=== PATIENT | male | born 1960 | race Caucasian/White ===

== ENCOUNTER 2020-02-03 09:05 | Inpatient (IN) | payer BC ==
[~2020-02-03] VITALS: Ht 170.2 cm; Wt 97.5 kg
[~2020-02-03 09:05] MED LIST: LEVAQUIN500 MG PO; PREDNISONE20 MG PO
[2020-02-03] MEDS ORDERED: KETOROLAC TROMETHAMINE 30 MG/ML VIAL IV STA (09:12)
[2020-02-03] MEDS ORDERED: ONDANSETRON HCL INJ 2MG/ML 2ML 2 MG/ML VIAL IV STA (09:12)
[2020-02-03] MEDS ORDERED: MORPHINE SULFATE INJ 4 MG/ML INJ 1ML IV STA (09:12)
[2020-02-03] MEDS ORDERED: SODIUM CHLORIDE 0.9% 1000ML 1,000 ML IV STA (09:12)
[2020-02-03 09:29] LABS: BASOPHILS % 0.2 % (0.0-1.0); EOSINOPHILS % 0.5 % (0.0-6.0); HEMATOCRIT 41.9 % (38.2-49.6); HEMOGLOBIN 13.9 g/dL (14.0-18.0); LYMPHOCYTES # (AUTO) 0.2 (1.0-3.2); LYMPHOCYTES % 2.3 % (18.0-39.1); MEAN CORPUSCULAR HEMOGLOBIN 29.1 pg (28-32); MEAN CORPUSCULAR HGB CONC 33.2 g/dL (31-35); MEAN CORPUSCULAR VOLUME 87.8 fL (81-99); MONOCYTES # (AUTO) 0.1 (0.2-0.8); MONOCYTES % 1.2 % (4.4-11.3); NEUTROPHILS # (AUTO) 6.3 (2.1-6.9); NEUTROPHILS % 95.3 % (38.7-80.0); PLATELET COUNT 202 x10e3/uL (140-360); RED BLOOD COUNT 4.77 x10e6/uL (4.3-5.7); RED CELL DISTRIBUTION WIDTH 13.5 % (11.7-14.4)
[2020-02-03 09:39] LABS: CLARITY,URINE CLEAR (CLEAR); COLOR,URINE YELLOW (YELLOW)
[2020-02-03 09:40] LABS: KETONES,URINE 2+ (NEGATIVE); LEUKOCYTE ESTERASE ,URINE NEGATIVE (NEGATIVE); NITRITE,URINE NEGATIVE (NEGATIVE); PROTEIN,URINE DIPSTICK 2+ (NEGATIVE)
[2020-02-03 09:41] LABS: BILIRUBIN,URINE SMALL (NEGATIVE); URINE UROBILINOGEN 0.2 mg/dL (0.2 - 1)
[2020-02-03] MEDS ORDERED: CEFTRIAXONE SOD 1 GM/NS 50 ML 50 ML IV ONE (09:45)
[2020-02-03 09:50] LABS: INR 0.99; PROTHROMBIN TIME 13.7 seconds (11.9-14.5)
[2020-02-03 09:51] LABS: PARTIAL THROMBOPLASTIN TIME 26.7 seconds (23.8-35.5)
[2020-02-03] MEDS ORDERED: MORPHINE SULFATE 2 MG/ML SYR 1ML IV PRN (10:00)
[2020-02-03] MEDS ORDERED: ONDANSETRON HCL INJ 2MG/ML 2ML 2 MG/ML VIAL IV PRN (10:00)
[2020-02-03] MEDS ORDERED: PROMETHAZINE HCL (IM) 25 MG/ML VIAL IV PRN (10:00)
[2020-02-03] MEDS ORDERED: PROMETHAZINE 12.5MG/ NACL 0.9% 50 ML IV PRN (10:00)
[2020-02-03 10:07] LABS: BACTERIA,URINE MANY /HPF; RBC,URINE 0-5 /HPF (0-5); WBC,URINE (MAN) 21-50 /HPF (0-5)
[2020-02-03 10:08] LABS: EPITHELIAL CELLS,URINE FEW /LPF; TRANSITIONAL EPI CELLS,URINE FEW
[2020-02-03 10:10] LABS: ALBUMIN 3.4 g/dL (3.5-5.0); ALBUMIN/GLOBULIN RATIO 0.7 (0.8-2.0); CREATININE, SERUM 1.67 mg/dL (0.72-1.25)
--- NOTE | 2020-02-03 10:29 | NUR ---
pt given urine strainer
[2020-02-03] MEDS: SODIUM CHLORIDE 0.9% 1000ML 1,000 ML IV SCH ×2 (11:45→21:50)
[2020-02-03 12:19] VITALS: BP 107/67
[2020-02-03] MEDS ORDERED: IBUPROFEN 400 MG TAB PO ONE (15:15)
[2020-02-03 15:47] VITALS: BP 107/67
[2020-02-03 16:20] VITALS: BP 121/68
[2020-02-03 20:48] VITALS: BP 118/73
[2020-02-03] MEDS ORDERED: IBUPROFEN 400 MG TAB PO PRN ×2 (21:00→21:15)
[2020-02-03 21:06] VITALS: BP 118/73
[2020-02-03] MEDS: MORPHINE SULFATE INJ 4 MG/ML INJ 1ML IV PRN (21:50)
[2020-02-03] MEDS: CEFTRIAXONE SOD 1 GM/NS 50 ML 50 ML IV SCH (21:50)
[2020-02-04] VITALS (8 sets, daily range): BP systolic 120–133; BP diastolic 71–85
[2020-02-04] MEDS: SODIUM CHLORIDE 0.9% 1000ML 1,000 ML IV SCH ×3 (04:58→17:46)
[2020-02-04] MEDS: MORPHINE SULFATE INJ 4 MG/ML INJ 1ML IV PRN (04:59)
[2020-02-04 06:59] LABS: BASOPHILS % 0.3 % (0.0-1.0); EOSINOPHILS % 0.5 % (0.0-6.0); HEMATOCRIT 36.3 % (38.2-49.6); HEMOGLOBIN 11.7 g/dL (14.0-18.0); LYMPHOCYTES # (AUTO) 0.2 (1.0-3.2); LYMPHOCYTES % 4.4 % (18.0-39.1); MEAN CORPUSCULAR HEMOGLOBIN 28.7 pg (28-32); MEAN CORPUSCULAR HGB CONC 32.2 g/dL (31-35); MONOCYTES # (AUTO) 0.2 (0.2-0.8); MONOCYTES % 6.2 % (4.4-11.3); NEUTROPHILS # (AUTO) 3.4 (2.1-6.9); NEUTROPHILS % 87.8 % (38.7-80.0); PLATELET COUNT 171 x10e3/uL (140-360); RED BLOOD COUNT 4.08 x10e6/uL (4.3-5.7); RED CELL DISTRIBUTION WIDTH 13.9 % (11.7-14.4)
[2020-02-04 07:23] LABS: ALBUMIN 2.6 g/dL (3.5-5.0); ALBUMIN/GLOBULIN RATIO 0.7 (0.8-2.0); ANION GAP 13.1 mmol/L (8-16); CALCIUM 8.5 mg/dL (8.4-10.2); CREATININE, SERUM 1.65 mg/dL (0.72-1.25); POTASSIUM 4.1 mmol/L (3.5-5.1)
[2020-02-04 07:56] LABS: BAND NEUTROPHILS % (MANUAL) 3 %; LYMPHOCYTES % (MANUAL) 4 % (19-48); MONOCYTES % (MANUAL) 4 % (3.4-9.0); NEUTROPHILS % (MANUAL) 88 % (40-74)
[2020-02-04 07:57] LABS: PLATELET ESTIMATE ADEQUATE; PLATELET MORPHOLOGY COMMENT NORMAL; RBC MORPHOLOGY COMMENT NORMAL
[2020-02-04] MEDS: CEFTRIAXONE SOD 1 GM/NS 50 ML 50 ML IV SCH ×2 (09:15→22:03)
--- NOTE | 2020-02-04 12:32 | Consultation ---
DATE OF CONSULTATION: 02/04/2020 Urology Consultation REASON FOR CONSULTATION: Renal colic. HISTORY OF PRESENT ILLNESS: Jorge Weston is a 59-year-old man who has never had any urological problems. He denies any hematuria, dysuria, urinary tract infections, and urolithiasis. He denies any issues except for some left testicular sensitivity ever since his vasectomy many years ago. The patient had severe left-sided flank pain with nausea and vomiting and reported to the emergency room and had a CT scan done as an outpatient revealed a 3 mm proximal left ureteral stone with left-sided hydronephrosis. unable to handle the patient as an outpatient and went to the emergency room and subsequently admitted for pain control and management. He denies any gross hematuria. The patient has required pain control during this hospitalization. Denies any urinary incontinence. Denies any obstructive symptoms. PAST MEDICAL AND SURGICAL HISTORY: None. ALLERGIES: NONE KNOWN. CURRENT MEDICATIONS: Normally none. SOCIAL HISTORY: The patient denies smoking, ethanol drug use. 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 FAMILY HISTORY: Significant for diabetes and heart disease. REVIEW OF SYSTEMS: Discussed as above in history of present illness, past medical history, otherwise negative for all systems. PHYSICAL EXAMINATION: GENERAL: Healthy-appearing 59-year-old man, lying in bed, in no apparent distress. VITAL SIGNS: He is currently afebrile. His vital signs are currently stable. ABDOMEN: Soft, obese, nondistended, slightly tender in the left flank with mild left-sided costovertebral angle tenderness. Kidneys are not palpable without hepatosplenomegaly. No obvious evidence of hernia. GENITOURINARY: Testes descended bilaterally. The right testis is normal. The left testis is slightly atrophic. There is some induration of the left epididymis and cord with some sensitivity. The right cord is less indurated. The patient has a normal circumcised male phallus with normal meatus without any lesion. Digital rectal examination deferred at the present time. For the remaining physical examination systems, please refer to the admission history and physical and chart and ERT sheet. LABORATORY STUDIES: The patient's sodium is low at 133. His creatinine is elevated 1.65. His urinalysis significant for 21 to 58 WBCs with many bacteria. The patient's white blood cell count is low at 3880, hemoglobin 11.7, platelets are normal 171 pounds. Urine cultures revealing preliminarily 10,000 to 50,000 colonies of Staph species. ASSESSMENT: 1. Left hydronephrosis. 2. Urinary tract infection. 3. Atrophic left testis. 4. Renal colic. 5. Nausea and vomiting. 6. Hyponatremia. 7. Presumably acute renal failure. 8. Obesity. 9. Leukopenia. 10. Anemia. 11. Obstructive left ureterolithiasis. PLAN: 1. I discussed with the patient the options of stone passage trial versus cystoscopy and stent placement. He would like to proceed as discussed stent placement for multiple reasons including the fact that he has urinary tract infection. He has acute renal failure as well as the fact that he has significant pains. 2. I posted the patient emergently for cystoscopy and stent placement. 3. I recommend keeping the patient as an inpatient until we have culture and sensitivity that are final, so that we may discharge him antibiotics potentially as early as tomorrow. 4. I recommend following up on the patient's renal function and rechecking it tomorrow, following stent placement today. I defer the hematological and electrolyte abnormalities to the admitting physician. Thank you much for involving us in care of your patient. We will be happy to follow along with you as well as an outpatient. Bro Orta MD [facility]/MODL /[id number] cc: Tuan Moncada MD
[2020-02-04] MEDS ORDERED: B&O 60MG R/S 60 MG SUPP PR ONE (12:36)
[2020-02-04] MEDS ORDERED: IOPAMIDOL 300MG/ML 50ML INFUS..BTL IV ONE (12:37)
[2020-02-04] MEDS ORDERED: MEPERIDINE HCL INJ 25 MG/ML VIAL ONE (14:10)
[2020-02-04] MEDS ORDERED: ACETAMINOPHEN 1000 MG/100 ML 100 ML IV ONE (14:21)
[2020-02-04] MEDS ORDERED: DEXAMETHASONE SOD PHOS INJ 4 MG/ML VIAL ONE (15:20)
[2020-02-04] MEDS ORDERED: LIDOCAINE HCL 2% LOCAL INJ 5 ML SDV VIAL INJ ONE (15:20)
[2020-02-04] MEDS ORDERED: PROPOFOL IV EMULSION 10 MG/ML 20 ML VIAL ONE (15:20)
[2020-02-04] MEDS ORDERED: DESFLURANE 240 ML BTL INH ONE (15:20)
[2020-02-04] MEDS ORDERED: ONDANSETRON HCL INJ 2MG/ML 2ML 2 MG/ML VIAL ONE (15:20)
[2020-02-04] MEDS ORDERED: MIDAZOLAM HCL 2 MG/2 ML VIAL ONE (15:54)
[2020-02-04] MEDS ORDERED: FENTANYL CITRATE/PF 100MCG/2 ML INJ ONE (15:54)
--- NOTE | 2020-02-04 19:11 | NUR ---
Report given to oncoming nurse. Resting in bed. Call light within reach, bed locked and in low position. 125 ml/hr NS via right AC peripheral IV. No signs of infiltration.
[2020-02-05 00:13] VITALS: BP 133/71
[2020-02-05 05:23] VITALS: BP 170/96
[2020-02-05] MEDS ORDERED: KETOROLAC TROMETHAMINE 30 MG/ML VIAL IV STA (05:23)
[2020-02-05 06:12] LABS: BASOPHILS % 0.2 % (0.0-1.0); HEMATOCRIT 31.8 % (38.2-49.6); HEMOGLOBIN 10.3 g/dL (14.0-18.0); LYMPHOCYTES # (AUTO) 0.3 (1.0-3.2); LYMPHOCYTES % 5.2 % (18.0-39.1); MEAN CORPUSCULAR HEMOGLOBIN 28.8 pg (28-32); MEAN CORPUSCULAR HGB CONC 32.4 g/dL (31-35); MEAN CORPUSCULAR VOLUME 88.8 fL (81-99); MONOCYTES # (AUTO) 0.4 (0.2-0.8); MONOCYTES % 7.7 % (4.4-11.3); NEUTROPHILS # (AUTO) 4.1 (2.1-6.9); NEUTROPHILS % 86.3 % (38.7-80.0); PLATELET COUNT 158 x10e3/uL (140-360); RED BLOOD COUNT 3.58 x10e6/uL (4.3-5.7); RED CELL DISTRIBUTION WIDTH 13.8 % (11.7-14.4)
[2020-02-05] MEDS: SODIUM CHLORIDE 0.9% 1000ML 1,000 ML IV SCH ×2 (06:23→10:30)
[2020-02-05 06:38] LABS: ANION GAP 10.4 mmol/L (8-16); CALCIUM 8.6 mg/dL (8.4-10.2); CREATININE, SERUM 1.33 mg/dL (0.72-1.25); POTASSIUM 4.4 mmol/L (3.5-5.1)
--- NOTE | 2020-02-05 07:00 | NUR ---
RECEIVED REPORT FROM DIGITIZER OPERATOR NURSE, PATIENT IS A&OX3, FLUIDS RUNNING TO RT AC IV20G, STRAINER IN RESTROOM, PT IS AWARE TO STRAIN ALL URINE. NO DISTRESS NOTED, BED IS LOW AND LOCKED, SIDE RAILS UPX2, CALL LIGHT WITHIN REACH.
[2020-02-05 07:36] LABS: BAND NEUTROPHILS % (MANUAL) 8 %; LYMPHOCYTES % (MANUAL) 4 % (19-48); MONOCYTES % (MANUAL) 5 % (3.4-9.0); NEUTROPHILS % (MANUAL) 83 % (40-74); PLATELET ESTIMATE ADEQUATE; PLATELET MORPHOLOGY COMMENT NORMAL; RBC MORPHOLOGY COMMENT NORMAL
[2020-02-05 08:24] VITALS: BP 162/97
[2020-02-05 09:00] VITALS: BP 162/97
[2020-02-05] MEDS: CEFTRIAXONE SOD 1 GM/NS 50 ML 50 ML IV SCH (10:30)
[2020-02-05 13:00] VITALS: BP 144/95
[2020-02-05] MEDS ORDERED: FLOMAX0.4 MG PO (13:50)
[2020-02-05] MEDS ORDERED: TYLENOL WITH C1 EACH PO (13:51)
[2020-02-05] MEDS ORDERED: BACTRIM DS TAB1 EACH PO (13:51)
[2020-02-05] MEDS ORDERED: AZO URINARY P97.5 MG PO (13:53)
--- NOTE | 2020-02-05 14:10 | NUR ---
EDUCATED PATIENT REGARDING DISCHARGE INSTRUCTIONS. PT TO FOLLOW UP WITH PCP IN 5-7 DAYS, AND UROLOGIST DR. Baldo OCONNOR IN 2 WEEKS, NEW MEDICATION PRESCRIPTIONS GIVEN TO PATIENT. PATIENT ADVISED TO STOP PHENTERMINE MEDICATION PER DR. Baldo OCONNOR. STRAIN ALL URINE, SAVE ANY STONES. PATIENT VERBALIZED INSTRUCTIONS. NO QUESTIONS. IV TO RIGHT AC D/C'D INTACT, 2X2 AND TAPE PLACED.
--- NOTE | 2020-02-05 14:16 | NUR ---
PATIENT WHEELED OUT VIA WHEELCHAIR BY STAFF, FOR D/C HOME VIA PRIVATE AUTO. NO DISTRESS NOTED, ALL BELONGINGS WITH PT.
--- NOTE | 2020-02-06 08:18 | Discharge Summary ---
DISCHARGE DIAGNOSES: 1. Left kidney stone, status post cystoscopy and stent placement. 2. Hypertension. HISTORY OF PRESENT ILLNESS AND HOSPITAL COURSE: The patient is a gentleman, who presented with flank pain. He was found as an outpatient to have a 3 mm proximal left ureteral stone with hydronephrosis, where he was tried to be treated as an outpatient, but unfortunately, the patient started having increasing nausea, vomiting, pain. Therefore, he has been admitted for further evaluation. He was seen by Dr. Orta, who took him to the OR and did a cystoscopy. Please see OR notes for further details. Postprocedure, the patient did very well. He had some complaints of some synovitis of his hands, which is not unusual for him and he did much better after a dose of Toradol. The patient was discharged to follow up with me in 1 week as well as Dr. Orta. Please see hospital chart for full details. MD YULI Gatica/SOPHIE /[id number]
--- NOTE | 2020-02-06 22:21 | Operative Report ---
DATE OF PROCEDURE: 02/04/2020 SURGEON: Bro Orta MD PREOPERATIVE DIAGNOSES: 1. Left hydronephrosis. 2. Urinary tract infection. POSTOPERATIVE DIAGNOSES: 1. Left hydronephrosis. 2. Left distal ureteral stricture. 3. Urinary tract infection. 4. Urethral stricture disease near the external urinary sphincter. 5. 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 OPERATIONS PERFORMED: 1. Cystourethroscopy with bilateral ureteral catheterization and retrograde ureteropyelography (separate procedure performed for the urinary tract infections). 2. Interpretation of retrograde ureteropyelography. 3. Left ureteroscopy with dilation of ureteral stricture (separate procedure performed for the diagnosis of the stricture). 4. Radiological services with supervision and interpretation of ureteroscopy. 5. Interpretation of retrograde ureteropyelography. 6. Supervision of fluoroscopy, no radiologist present. 7. Cystourethroscopy with transurethral resection of bladder tumor. 8. Cystourethroscopy with dilation of urethral stricture. ANESTHESIA: General. COMPLICATIONS: None. CLINICAL SUMMARY: Please refer to consultation dictation from the same date. OPERATIVE PROCEDURE IN DETAIL: Informed consent was verified. Jorge Weston was properly identified, taken to the operating room, placed on a cystoscopy table in supine position. Anesthesia was uneventfully begun. The patient was then carefully gently repositioned in the dorsal lithotomy position with all pressure points well padded. His genitalia were prepared and draped in the usual sterile fashion. The cystoscope sheath with the visual obturator in place was atraumatically inserted into the patient's urethra, was guided unremarkable distal urethra to the bulbar region where just outside the external urinary sphincter. There was a short and not very dense stricture, which we gently dilated across utilizing a 22.5-Armenian cystoscope sheath, thus calibrating it at 22.5-Armenian. We went through the prostate bed, which was significant for BPH with an elevated median bar and entered the patient's bladder. Panendoscopy revealed a tumor just lateral to the right ureteral orifice. There was some calcified glistening at the left ureteral orifice. The open-ended ureteral catheter was used to cannulate the right ureter and the retrograde ureteral pyelograms were performed. It was then attempted to be placed into the left ureter and retrograde ureteral pyelograms were performed. There was hydroureteronephrosis in the left hand side. We attempted to place a guidewire into the left distal ureter and this was unsuccessful. Therefore, we took the semi-rigid ureteroscope and brought it to the ureteral orifice and under direct vision, we were able to negotiate a guidewire through what appeared to be a distal ureteral stricture. We then followed the wire with the ureteroscope, thus gently dilating the distal ureter to the ureteroscope in size. We did not visualize any stone within the ureter. There was definitely dilation of the ureter itself. With cystoscopic fluoroscopic guidance, a left-sided indwelling ureteral stent was then placed. It was coiled in the patient's kidneys as well as the patient's bladder. The retaining suture was cut short. Cold cup biopsy forceps were then utilized to resect the bladder tumor. We then utilized the Bugbee electrode to fulgurate the base of the tumor as well as the surrounding region in order to ensure any negative margin. Excellent hemostasis was achieved. The patient's bladder was drained. Cystoscope was withdrawn. A belladonna and opium suppository was placed revealing a 30 g prostate, smooth, non-fluctuant, without any nodules. The patient was then uneventfully reversed from anesthesia and taken to recovery room in stable condition. Interpretation of retrograde ureteropyelography contrast was instilled in retrograde fashion bilaterally. The right side was unremarkable. There were no tumors, no stones, no diverticula. Unobstructed drainage was observed fluoroscopically. Left side exhibited hydroureteronephrosis. The stent was in good position, coiled in the patient's kidneys as well as the patient's bladder at the end of the case. PLANS: Will be to observe the patient overnight, await his final urine culture and sensitivity ensuring he is discharged on culture-specific antibiotics. We will then plan to follow him back up in the office and follow up in the office in a couple of weeks for a uroflowmetry and bladder sonography in order to evaluate his voiding. Meantime, we will plan on discharge the patient home on Flomax for his newly diagnosed BPH. Bro Orta MD [facility]/SOPHIE /[id number]
== END 2020-02-05 14:16 | disposition home or self-care (01) | DRG 660 ==
LOC: ER 09:05 → ERHOLD 09:46 → MED/SURG2 11:03
PROVIDERS: ADMIT Internal Medicine; ATTEND Internal Medicine
PROC: 0T768ZZ Dilation of Right Ureter, Via Natural or Artificial Opening Endoscopic (ICD-10-PCS; 2020-02-04)
PROC: BT141ZZ Fluoroscopy of Kidneys, Ureters and Bladder using Low Osmolar Contrast (ICD-10-PCS; 2020-02-04)
PROC: 0T7D8ZZ Dilation of Urethra, Via Natural or Artificial Opening Endoscopic (ICD-10-PCS; 2020-02-04)
PROC: 0TBB8ZX Excision of Bladder, Via Natural or Artificial Opening Endoscopic, Diagnostic (ICD-10-PCS; principal; 2020-02-04 12:00)
PROC: 0T778DZ Dilation of Left Ureter with Intraluminal Device, Via Natural or Artificial Opening Endoscopic (ICD-10-PCS; 2020-02-04 12:00)
DX: N13.6 Pyonephrosis (principal); E87.1 Hypo-osmolality and hyponatremia; N39.0 Urinary tract infection, site not specified; C67.9 Malignant neoplasm of bladder, unspecified; N17.9 Acute kidney failure, unspecified; I12.9 Hypertensive chronic kidney disease with stage 1 through stage 4 chronic kidney disease, or unspecified chronic kidney disease; N18.3 Chronic kidney disease, stage 3 (moderate); E66.9 Obesity, unspecified; Z68.33 Body mass index [BMI] 33.0-33.9, adult; N50.0 Atrophy of testis; D64.9 Anemia, unspecified; N23 Unspecified renal colic; N45.1 Epididymitis; N35.919 Unspecified urethral stricture, male, unspecified site
CPT/HCPCS: 36415; 74420; 80048; 80053; 81001; 83970; 84550; 85025; 85610; 85730; 87086; 87186; 88305; 96361; 99284; C2617; J0696; J1100; J1885; J2001; J2175; J2250; J2270; J2405; J3010; J7030

== ENCOUNTER 2020-02-28 16:04 | Inpatient (IN) | payer BC ==
[~2020-02-28] VITALS: Ht 170.2 cm; Wt 98.6 kg
[~2020-02-28 16:04] MED LIST changes: +AZO URINARY P97.5 MG PO; +BACTRIM DS TAB1 EACH PO; +FLOMAX0.4 MG PO; +TYLENOL WITH C1 EACH PO
[2020-02-28] MEDS ORDERED: ONDANSETRON HCL INJ 2MG/ML 2ML 2 MG/ML VIAL IV PRN (16:30)
[2020-02-28 16:43] LABS: BASOPHILS % 0.3 % (0.0-1.0); EOSINOPHILS # (AUTO) 0.2 (0.0-0.4); EOSINOPHILS % 2.6 % (0.0-6.0); HEMOGLOBIN 11.7 g/dL (14.0-18.0); LYMPHOCYTES % 15.2 % (18.0-39.1); MEAN CORPUSCULAR HGB CONC 32.5 g/dL (31-35); MEAN CORPUSCULAR VOLUME 89.1 fL (81-99); MONOCYTES # (AUTO) 0.6 (0.2-0.8); MONOCYTES % 8.9 % (4.4-11.3); NEUTROPHILS # (AUTO) 4.9 (2.1-6.9); NEUTROPHILS % 72.4 % (38.7-80.0); PLATELET COUNT 173 x10e3/uL (140-360); RED BLOOD COUNT 4.04 x10e6/uL (4.3-5.7); RED CELL DISTRIBUTION WIDTH 13.8 % (11.7-14.4)
[2020-02-28 16:50] LABS: INR 0.91; PARTIAL THROMBOPLASTIN TIME 25.1 seconds (23.8-35.5); PROTHROMBIN TIME 12.8 seconds (11.9-14.5)
[2020-02-28 16:57] LABS: ALBUMIN 3.4 g/dL (3.5-5.0); ALBUMIN/GLOBULIN RATIO 0.8 (0.8-2.0); ANION GAP 12.7 mmol/L (8-16); CALCIUM 9.2 mg/dL (8.4-10.2); CREATININE, SERUM 1.32 mg/dL (0.72-1.25); POTASSIUM 3.7 mmol/L (3.5-5.1)
[2020-02-28 17:50] VITALS: BP 179/97
--- NOTE | 2020-02-28 17:58 | NUR ---
AAOX3. ACYANOTIC. RESTING IN BED WATCHING TELEVISION. NO DISTRESS NOTED. SIDERAILS UP X2. BED LOW. CALL LIGHT IN REACH.
[2020-02-28] MEDS: SODIUM CHLORIDE 0.9% 1000ML 1,000 ML IV SCH (18:00)
[2020-02-28 18:10] VITALS: BP 179/97
[2020-02-28] MEDS: ENOXAPARIN SODIUM INJ 100 MG/ML SYR SC SCH (18:43)
--- NOTE | 2020-02-28 19:10 | NUR ---
Bedside report and walking rounds completed with off going nurse. Patient in bed with call light within reach. No issues or concerns noted. Will continue to monitor closely.
[2020-02-28 20:00] VITALS: BP 162/88
[2020-02-28 21:52] VITALS: BP 162/88
[2020-02-29] VITALS (7 sets, daily range): BP systolic 134–156; BP diastolic 67–82
[2020-02-29] MEDS: SODIUM CHLORIDE 0.9% 1000ML 1,000 ML IV SCH ×2 (04:47→12:14)
--- NOTE | 2020-02-29 05:10 | NUR ---
Dr Moncada on unit, home meds reviewed and continued per orders.
[2020-02-29] MEDS ORDERED: ACETAMINOPHEN/CODEINE 300MG - 30MG TAB PO PRN (05:15)
[2020-02-29] MEDS: ENOXAPARIN SODIUM INJ 100 MG/ML SYR SC SCH ×2 (05:35→16:45)
[2020-02-29 05:39] LABS: BASOPHILS % 0.6 % (0.0-1.0); EOSINOPHILS # (AUTO) 0.3 (0.0-0.4); EOSINOPHILS % 4.1 % (0.0-6.0); HEMOGLOBIN 10.9 g/dL (14.0-18.0); LYMPHOCYTES # (AUTO) 1.2 (1.0-3.2); LYMPHOCYTES % 19.1 % (18.0-39.1); MEAN CORPUSCULAR HEMOGLOBIN 28.8 pg (28-32); MEAN CORPUSCULAR HGB CONC 32.1 g/dL (31-35); MEAN CORPUSCULAR VOLUME 89.9 fL (81-99); MONOCYTES # (AUTO) 0.5 (0.2-0.8); MONOCYTES % 7.6 % (4.4-11.3); NEUTROPHILS # (AUTO) 4.3 (2.1-6.9); NEUTROPHILS % 68.1 % (38.7-80.0); PLATELET COUNT 162 x10e3/uL (140-360); RED BLOOD COUNT 3.78 x10e6/uL (4.3-5.7); RED CELL DISTRIBUTION WIDTH 13.7 % (11.7-14.4)
[2020-02-29 05:52] LABS: ANION GAP 10.2 mmol/L (8-16); BLOOD UREA NITROGEN 17 mg/dL (7-26); BUN/CREATININE RATIO 19 (6-25); CALCIUM 8.8 mg/dL (8.4-10.2); CARBON DIOXIDE 23 mmol/L (22-29); CHLORIDE 112 mmol/L (98-107); EST GLOMERULAR FILTRATION RATE > 60 ML/MIN (60-); GLUCOSE 92 mg/dL (74-118); POTASSIUM 4.2 mmol/L (3.5-5.1); SODIUM 141 mmol/L (136-145)
--- NOTE | 2020-02-29 06:59 | NUR ---
Bedside report and walking rounds completed with on coming nurse. Patient in bed with call light within reach. No issues or concerns noted.
[2020-02-29] MEDS: TRIMETHOPRIM/SULFAMETHOXAZOLE 160-800 MG TAB PO SCH ×2 (08:32→16:28)
[2020-02-29] MEDS: TAMSULOSIN HCL 0.4 MG CAP PO SCH (08:32)
--- NOTE | 2020-02-29 13:25 | NUR ---
Pt. expressed no spiritual or emotional concerns at this time. Internal Controls Specialist provided hospitality and information on how to reach lead programmer, if needed. No need to follow at this time. LUL SALAZAR Internal Controls Specialist Spiritual Care Department O: [phone]
--- NOTE | 2020-02-29 14:58 | NUR ---
Nutrition Screen Note RD Recommendation for Physician: - Continue Regular diet Plan of Care: RD following, monitoring for tolerance and adequacy Nutrition reason for involvement: Nutrition Risk Trigger Primary Diagnose(s): DVT PMH: kidney stone, L hydronephrosis Ht: 67 in Wt: 210 lb BMI: 32.9 kg/m2 IBW: [address] Assessment: (02/28) 59 YOM admitted for DVT, seen today per MST screen. Pt reports good appetite and po intake currently and TISSUE SPECIALIST. Pt reports UBW of 210#-215#, no wt loss reported. Pt denies any GI distress. Chart reviewed. Labs and meds reviewed. Pt with no questions or concerns at time of visit. Will continue to monitor. Current Diet: Regular Malnutrition Evaluation (02/29/20) The patient does not meet criteria for a specified degree of malnutrition at this time. Will re-evaluate at follow-up as appropriate. Diet Education Needs Assessment: Diet education not indicated. Diet tolerance: tolerating po Nutrition Care Level: low Signed: Le Rushing RD, LD, CNSC
[2020-03-01] VITALS (8 sets, daily range): BP systolic 134–159; BP diastolic 73–96
[2020-03-01] MEDS: SODIUM CHLORIDE 0.9% 1000ML 1,000 ML IV SCH ×2 (00:23→13:25)
[2020-03-01] MEDS: ENOXAPARIN SODIUM INJ 100 MG/ML SYR SC SCH ×2 (05:22→17:53)
--- NOTE | 2020-03-01 07:00 | NUR ---
BEDSIDE SHIFT REPORT RECEIVED PT IN STABLE CONDITION, IVF INFUSING TO L AC 20G NO SS OF INFILTRATION NOTED, UPDATED ON POC VOICED UNDERSTANDING, DENIES PAIN AT THIS TIME, CALL LGIHT IN REACH WILL CONTINUE TO MONITOR
--- NOTE | 2020-03-01 07:05 | NUR ---
Bedside report and walking rounds completed with on coming nurse. Patient in bed and call light within reach. No issues or concerns noted.
--- NOTE | 2020-03-01 09:17 | NUR ---
LUZMARIA for KRISTY Linh [phone]
[2020-03-01] MEDS: TRIMETHOPRIM/SULFAMETHOXAZOLE 160-800 MG TAB PO SCH ×2 (09:37→16:50)
[2020-03-01] MEDS: TAMSULOSIN HCL 0.4 MG CAP PO SCH (09:37)
[2020-03-01] MEDS ORDERED: ONDANSETRON HCL 4 MG ORAL DISINTEGRATING TAB PO PRN (12:00)
--- NOTE | 2020-03-01 19:15 | NUR ---
Bedside report completed with morning nurse. Pt alert to name, lying in bed HOB 45 degrees. Pt denies pain at this time. Bed low and locked. Call light within reach.
[2020-03-02] VITALS (7 sets, daily range): BP systolic 130–151; BP diastolic 67–86
[2020-03-02] MEDS: SODIUM CHLORIDE 0.9% 1000ML 1,000 ML IV SCH (03:21)
[2020-03-02] MEDS: APIXABAN 5 MG TABLET PO SCH ×2 (08:54→17:11)
[2020-03-02] MEDS: TRIMETHOPRIM/SULFAMETHOXAZOLE 160-800 MG TAB PO SCH ×2 (08:54→17:11)
[2020-03-02] MEDS: TAMSULOSIN HCL 0.4 MG CAP PO SCH (08:54)
--- NOTE | 2020-03-02 19:00 | NUR ---
RECEIVED PATIENT IN BEDSIDE SHIFT REPORT. PATIENT RESTING IN BED AT THIS TIME. NO PAIN REPORTED. NO S&S OF DISTRESS NOTED. LLE EDEMA NOTED, PITTING +2, BUT NO REDNESS OR PAIN. BED LOCKED IN LOWEST POSITION, SIDE RAILS UPX2, CALL LIGHT IN REACH.
[2020-03-03] VITALS: BP 125/70
[2020-03-03 04:00] VITALS: BP 139/73
--- NOTE | 2020-03-03 04:00 | NUR ---
TELE STATED PATIENT'S HEART RATE WAS DOWN TO 44. WENT TO ROOM, WOKE UP PATIENT UP. PATIENT STATED THAT HIS HEART RATE DOES DROP WHEN HE IS DEEPLY ASLEEP. HEART RATE INCREASED TO MID-60S AFTER WAKING UP.
[2020-03-03 08:00] VITALS: BP_SYST 127; BP_SYST 150; BP_DIAS 61; BP_DIAS 82
--- NOTE | 2020-03-03 08:22 | Discharge Summary ---
DISCHARGE DIAGNOSES: 1. Deep venous thrombosis of the left lower extremity. 2. Hematuria. 3. Kidney stone. HISTORY OF PRESENT ILLNESS AND HOSPITAL COURSE: The patient is a gentleman, who presented with left lower extremity cellulitis, who was found to have a significant DVT of left lower extremity. He was brought in and placed on Lovenox secondary to having hematuria from his recent kidney stone. The patient was seen by his urologist, Dr. Orta. Patient's hematuria actually resolved while being on anticoagulants then he was switched over to Eliquis 10 mg b.i.d. for 7 days and converted over to 5 mg b.i.d. thereafter. Since the patient's hematuria resolved, he tolerated the transition from Lovenox to Eliquis fine. The patient was then discharged home with a script. Follow up in couple of weeks with me. Call back if there is anything to change or sooner. Please see hospital chart for full details. MD YULI Gatica/SOPHIE /[id number]
[2020-03-03] MEDS: TRIMETHOPRIM/SULFAMETHOXAZOLE 160-800 MG TAB PO SCH (09:18)
[2020-03-03] MEDS: APIXABAN 5 MG TABLET PO SCH (09:18)
[2020-03-03] MEDS: TAMSULOSIN HCL 0.4 MG CAP PO SCH (09:18)
[2020-03-03] MEDS ORDERED: ELIQUIS5 MG PO (09:32)
--- NOTE | 2020-03-03 09:57 | NUR ---
Pt discharged home at this time. Pt aox4 and able to verbalize needs. Denies any pain at this time. Pt verbalized understanding of all discharge instructions and follow up appointments. Pt was discharged with prescription for eliquis.
== END 2020-03-03 09:57 | disposition home or self-care (01) | DRG 300 ==
LOC: ER 16:04 → ERHOLD 16:29 → MED/SURG 17:38
PROVIDERS: ADMIT Internal Medicine; ATTEND Internal Medicine
DX: I82.412 Acute embolism and thrombosis of left femoral vein (principal); N39.0 Urinary tract infection, site not specified; N17.9 Acute kidney failure, unspecified; I82.432 Acute embolism and thrombosis of left popliteal vein; N40.0 Benign prostatic hyperplasia without lower urinary tract symptoms; E66.9 Obesity, unspecified; Z68.34 Body mass index [BMI] 34.0-34.9, adult; R31.9 Hematuria, unspecified; I12.9 Hypertensive chronic kidney disease with stage 1 through stage 4 chronic kidney disease, or unspecified chronic kidney disease; N18.3 Chronic kidney disease, stage 3 (moderate); Z85.51 Personal history of malignant neoplasm of bladder; D50.0 Iron deficiency anemia secondary to blood loss (chronic); N35.919 Unspecified urethral stricture, male, unspecified site; Z96.0 Presence of urogenital implants
CPT/HCPCS: 36415; 80048; 80053; 85025; 85610; 85730; 96361; 99283; J1650; J7030

== ENCOUNTER → 2020-03-24 | Day surgery (SDC) | payer BC, OTHER ==
[~2020-03-24] MED LIST changes: +B&O 60MG R/S 60 MG SUPP PR ONE; +CEFTRIAXONE SOD 1 GM/NS 50 ML 50 ML IV ONE; +DEXAMETHASONE SOD PHOS INJ 4 MG/ML VIAL ONE; +ELIQUIS5 MG PO; +ETOMIDATE 2 MG/ML 10 ML INJ IV ONE; +IOPAMIDOL 300MG/ML 50ML INFUS..BTL IV ONE; +ONDANSETRON HCL INJ 2MG/ML 2ML 2 MG/ML VIAL ONE; +SEVOFLURANE INHAL SOLN 250 ML PEN BTL ONE; +XARELTO10 MG PO
[2020-03-24 13:35] VITALS: BP 165/90
--- NOTE | 2020-03-26 03:00 | Operative Report ---
DATE OF PROCEDURE: 03/24/2020 SURGEON: Bro Orta MD PREOPERATIVE DIAGNOSES: 1. Left ureterolithiasis. 2. Bladder cancer. 3. Gross hematuria. 4. Left indwelling ureteral stent. POSTOPERATIVE DIAGNOSES: 1. Left ureterolithiasis. 2. Bladder cancer. 3. Gross hematuria. 4. Left indwelling ureteral stent. OPERATIONS PERFORMED: 1. Cystourethroscopy with transurethral resection of small extremely early recurrent bladder tumor (separate procedure performed for the new bladder tumor). 2. Cystourethroscopy with direct bladder biopsy of prior tumor base (separate procedure performed for the prior tumor). 3. Cystourethroscopy with right ureteral catheterization and retrograde ureteropyelography (separate procedure performed for hematuria). 4. Cystourethroscopy with complicated removal of left indwelling ureteral stent (separate procedure performed for the diagnosis of the stent). 5. Left ureteral pyeloscopy (separate procedure performed to evaluate for the ureterolithiasis, which was present previously). 6. Urological services with supervision and interpretation, no radiologist present. 7. Interpretation of retrograde ureteropyelography, no radiologist present. 8. Supervision of fluoroscopy, no radiologist present. ANESTHESIA: General. COMPLICATIONS: None. CLINICAL SUMMARY: Jorge Weston is a 59-year-old man who had renal colic caused by a stone. This resulted in his being taken to the operating room, and incidentally finding bladder tumor, this tumor was resected. He was brought to the operating room today to remove his stent, evaluate for any residual tumors and establish the next plan for followup. The patient is aware of the risks of bleeding, infection, injury to adjacent structures, need for additional procedures and elected to proceed. OPERATIVE PROCEDURE IN DETAIL: Informed consent was verified. Jorge Weston was properly identified taken to the operating room, placed on the cystoscopy table in supine position. Anesthesia was uneventfully begun. The patient was then carefully and gently repositioned in the dorsal lithotomy position with all pressure points well padded. His genitalia were prepared and draped in usual sterile fashion. The cystoscope sheath with a visual obturator in place was atraumatically inserted. The patient's urethra was guided unremarkable distal urethra through the bulbar region where the previously dilated stricture was no longer obstructing. We went through the prostate bed, which was significant for BPH and into the patient's bladder where there was a very small tumor lateral and cephalad to the prior location of the tumor. The tumor base appeared to show some signs of healing, but no papillary lesion was identified there. The cold cup biopsy forceps were then utilized to resect the newly found tumor. The cold cup biopsy forceps were then utilized to biopsy the prior tumor base. We then utilized the Bugbee electrode to fulgurate the entire region of resection. Thorough fulguration was performed to ensure hemostasis due to the fact that the patient needs to be back on blood thinners for his prior DVT. The ureteral orifice was away from the region of fulguration on the right hand side. A guidewire was then placed in the left ureter and guided to the level of the patient's kidney. The stent was then grasped completely, removed and discarded. Flexible ureteroscope was then placed over the guidewire and guided to the level of the patient's kidney, careful panendoscopy with intrarenal collecting system was performed. Ureteroscopy was also performed of the entire ureter. No stone was identified. There were no tumors. There were no suspicious lesions. Few Enrrique's plaques were identified. Interpretation of retrograde ureteropyelography, contrast was instilled in retrograde fashion bilaterally, in the right hand side it was instilled by the ureteral catheter. There were no tumors, no stones, no diverticula. Unobstructed drainage was observed fluoroscopically. On the left hand side, the contrast was injected via the ureteroscope. There were no tumors, no stones, no diverticula. Unobstructed drainage was observed fluoroscopically. The patient's bladder was drained. Cystoscope was withdrawn. Belladonna and opium suppository were placed revealing a 30 g prostate, smooth and non-fluctuant without any nodules. The patient was then uneventfully reversed from anesthesia and taken to recovery in stable condition. There were no complications to the procedure. The patient tolerated the procedure well. Plans will be to have the patient return to the office for uroflowmetry and bladder ultrasonography. We also plan on recommending the patient proceed with BCG immunotherapy. We also plan to work the patient up for prior urolithiasis with a 24-hour urine stone risk profile. Bro Orta MD [facility]/MODL /[id number] cc: Tuan Moncada MD
== END | disposition home or self-care (01) ==
LOC: OR 09:26
PROVIDERS: ATTEND Urology
DX: C67.2 Malignant neoplasm of lateral wall of bladder (principal); N20.1 Calculus of ureter; N28.89 Other specified disorders of kidney and ureter; N40.0 Benign prostatic hyperplasia without lower urinary tract symptoms; E66.9 Obesity, unspecified; F41.9 Anxiety disorder, unspecified; Z01.810 Encounter for preprocedural cardiovascular examination; Z01.812 Encounter for preprocedural laboratory examination; Z11.59 Encounter for screening for other viral diseases; Z46.6 Encounter for fitting and adjustment of urinary device; Z79.02 Long term (current) use of antithrombotics/antiplatelets; Z86.718 Personal history of other venous thrombosis and embolism; Z87.891 Personal history of nicotine dependence
CPT/HCPCS: 52234; 52351; 74420; 87635; 88305; 93005; C1758; C1769; J0696; J1100; J2405; Q9967

== ENCOUNTER → 2020-06-19 | Day surgery (SDC) | payer BC, OTHER ==
[2020-06-14 13:36] LABS: BASOPHILS % 0.4 % (0.0-1.0); EOSINOPHILS # (AUTO) 0.1 (0.0-0.4); EOSINOPHILS % 0.9 % (0.0-6.0); HEMATOCRIT 41.7 % (38.2-49.6); HEMOGLOBIN 13.2 g/dL (14.0-18.0); LYMPHOCYTES # (AUTO) 1.1 (1.0-3.2); LYMPHOCYTES % 19.5 % (18.0-39.1); MEAN CORPUSCULAR HEMOGLOBIN 28.3 pg (28-32); MEAN CORPUSCULAR HGB CONC 31.7 g/dL (31-35); MEAN CORPUSCULAR VOLUME 89.3 fL (81-99); MONOCYTES # (AUTO) 0.5 (0.2-0.8); MONOCYTES % 8.5 % (4.4-11.3); NEUTROPHILS % 70.2 % (38.7-80.0); PLATELET COUNT 232 x10e3/uL (140-360); RED BLOOD COUNT 4.67 x10e6/uL (4.3-5.7); RED CELL DISTRIBUTION WIDTH 13.2 % (11.7-14.4)
[~2020-06-19] MED LIST changes: -ETOMIDATE 2 MG/ML 10 ML INJ IV ONE; +LIDOCAINE HCL 2% LOCAL INJ 5 ML SDV VIAL INJ ONE; +MIDAZOLAM HCL 2 MG/2 ML VIAL ONE; +PROPOFOL IV EMULSION 10 MG/ML 20 ML VIAL ONE
--- NOTE | 2020-06-19 08:39 | Diagnostic Imaging Report ---
OR Fluoroscopy: IMPRESSION: Fluoroscopy service provided in the OR. Interpretation not requested. Signed by: Matthew Beverly MD on 06/19/2020 8:35 AM
[2020-06-19 08:45] VITALS: BP 161/99
--- NOTE | 2020-06-19 09:07 | Operative Report ---
DATE OF PROCEDURE: 06/19/2020 SURGEON: Bro Orta MD PREOPERATIVE DIAGNOSES: 1. Bladder cancer. 2. History of stone. POSTOPERATIVE DIAGNOSES: 1. Bladder cancer. 2. History of stone. OPERATIONS PERFORMED: 1. Cystourethroscopy with directed bladder biopsy (separate procedure performed for the bladder cancer). 2. Cystourethroscopy with bilateral ureteral catheterization and retrograde ureteropyelography (separate procedure performed for stone history). 3. Interpretation of retrograde ureteropyelography. 4. Supervision of fluoroscopy, no radiologist present. ANESTHESIA: General. COMPLICATIONS: None. CLINICAL SUMMARY: Jorge Weston is a 59-year-old man with history of urolithiasis, history of left ureteral stricture, history of urethral stricture, history of hematuria, history of being status post transurethral resection of the bladder cancer. He is brought to the operating room for a second level cystoscopy and biopsy of the prior tumor base. The patient has a history of deep vein thrombosis and is brought to the operating room for the above procedures. He is aware of the risks of bleeding, infection, injury to adjacent structures, need for additional procedures, and elected to proceed. OPERATIVE PROCEDURE IN DETAIL: Informed consent was verified. Jorge Weston was properly identified, taken to the operating room, placed on the cystoscopy table in supine position. Anesthesia was uneventfully begun. The patient was then carefully and gently repositioned in the dorsal lithotomy position with all pressure points well padded. His genitalia were prepared and draped in usual sterile fashion. A 22.5-Icelandic cystoscope sheath with the visual obturator in place was atraumatically inserted into the patient's urethra, was guided down the unremarkable distal urethra through some scarring, but no stricture just outside the sphincteric region, went through the prostate bed, which was significant for visually obstructing BPH with an elevated median bar. We entered the patient's bladder, where there were grade 1 trabeculations, but no tumors and no stones. There was a little bit of inflammation and almost complete healing lateral to the right ureteral orifice where we had a previous bladder tumor noted. No suspicious lesions were identified and there were no other tumors. Cold cup biopsy forceps were utilized to biopsy this tumor bed. Bugbee electrode was utilized to fulgurate this area and achieved perfect hemostasis. An 8-Icelandic catheter was used to cannulate each ureter and retrograde ureteropyelograms were performed. Interpretation of retrograde ureteropyelography contrast was instilled in retrograde fashion bilaterally. There were no tumors, no stones, no strictures, no suspicious lesions. Unobstructed drainage was observed bilaterally fluoroscopically. The patient's bladder was drained and cystoscope was withdrawn. Belladonna and opium suppository were placed revealing a 35 g prostate, smooth and non-fluctuant without any nodules. The patient was then uneventfully reversed from anesthesia and taken to recovery room in stable condition. There were no complications to the procedure. The patient tolerated the procedure well. Estimated blood loss was minimal. Explicit postoperative instructions were given and we will follow the patient up in the office. Bro Orta MD [facility]/SOPHIE /[id number] cc: Tuan Moncada MD
== END | disposition home or self-care (01) ==
LOC: OR 05:00
PROVIDERS: ATTEND Urology
DX: C67.9 Malignant neoplasm of bladder, unspecified (principal); Z87.891 Personal history of nicotine dependence; Z96.0 Presence of urogenital implants; Z87.442 Personal history of urinary calculi; N40.1 Benign prostatic hyperplasia with lower urinary tract symptoms; R39.14 Feeling of incomplete bladder emptying; R35.1 Nocturia; N35.919 Unspecified urethral stricture, male, unspecified site; N50.0 Atrophy of testis; N13.5 Crossing vessel and stricture of ureter without hydronephrosis; N13.30 Unspecified hydronephrosis; E66.9 Obesity, unspecified; Z09 Encounter for follow-up examination after completed treatment for conditions other than malignant neoplasm; Z86.718 Personal history of other venous thrombosis and embolism; Z79.01 Long term (current) use of anticoagulants; Z01.810 Encounter for preprocedural cardiovascular examination; Z01.812 Encounter for preprocedural laboratory examination; Z11.59 Encounter for screening for other viral diseases; Z68.34 Body mass index [BMI] 34.0-34.9, adult
CPT/HCPCS: 36415; 52005; 52204; 74420; 85025; 88305; 93005; C1758; J0696; J1100; J2001; J2405; J2704; Q9967; U0002; J2250

== ENCOUNTER 2022-05-25 01:12 | Inpatient (IN) | payer BC ==
[~2022-05-25] VITALS: Ht 170.2 cm; Wt 98.4 kg
[~2022-05-25 01:12] MED LIST changes: -B&O 60MG R/S 60 MG SUPP PR ONE; -CEFTRIAXONE SOD 1 GM/NS 50 ML 50 ML IV ONE; -DEXAMETHASONE SOD PHOS INJ 4 MG/ML VIAL ONE; -IOPAMIDOL 300MG/ML 50ML INFUS..BTL IV ONE; -LIDOCAINE HCL 2% LOCAL INJ 5 ML SDV VIAL INJ ONE; -MIDAZOLAM HCL 2 MG/2 ML VIAL ONE; -ONDANSETRON HCL INJ 2MG/ML 2ML 2 MG/ML VIAL ONE; -PROPOFOL IV EMULSION 10 MG/ML 20 ML VIAL ONE; -SEVOFLURANE INHAL SOLN 250 ML PEN BTL ONE
[2022-05-25] MEDS ORDERED: ASPIRIN 325 MG TAB PO ONE (01:30)
[2022-05-25 01:36] LABS: BASOPHILS # (AUTO) 0.1 (0.0-0.1); BASOPHILS % 0.6 % (0.0-1.0); EOSINOPHILS # (AUTO) 0.3 (0.0-0.4); EOSINOPHILS % 1.9 % (0.0-6.0); HEMATOCRIT 48.1 % (38.2-49.6); HEMOGLOBIN 15.4 g/dL (14.0-18.0); LYMPHOCYTES # (AUTO) 1.3 (1.0-3.2); LYMPHOCYTES % 9.6 % (18.0-39.1); MEAN CORPUSCULAR HEMOGLOBIN 29.5 pg (28-32); MEAN CORPUSCULAR VOLUME 92.1 fL (81-99); MONOCYTES # (AUTO) 0.7 (0.2-0.8); MONOCYTES % 5.2 % (4.4-11.3); NEUTROPHILS # (AUTO) 11.1 (2.1-6.9); PLATELET COUNT 276 x10e3/uL (140-360); RED BLOOD COUNT 5.22 x10e6/uL (4.3-5.7); RED CELL DISTRIBUTION WIDTH 12.9 % (11.7-14.4)
[2022-05-25 01:41] LABS: INR 2.1; PROTHROMBIN TIME 25.2 seconds (11.9-14.5)
[2022-05-25 01:42] LABS: PARTIAL THROMBOPLASTIN TIME 39.3 seconds (23.8-35.5)
[2022-05-25] MEDS ORDERED: ASPIRIN 325 MG TAB ONE (01:45)
[2022-05-25 01:52] LABS: ALBUMIN 3.9 g/dL (3.5-5.0); ALBUMIN/GLOBULIN RATIO 0.9 (0.8-2.0); ANION GAP 16.7 mmol/L (8-16); CREATININE, SERUM 1.66 mg/dL (0.72-1.25); POTASSIUM 3.7 mmol/L (3.5-5.1)
[2022-05-25 02:08] LABS: AMPHETAMINES SCREEN,URINE NEGATIVE (NEGATIVE); BENZODIAZEPINES SCREEN,URINE NEGATIVE (NEGATIVE); CLARITY,URINE CLEAR (CLEAR); COLOR,URINE YELLOW (YELLOW); KETONES,URINE NEGATIVE (NEGATIVE); LEUKOCYTE ESTERASE ,URINE NEGATIVE (NEGATIVE); NITRITE,URINE NEGATIVE (NEGATIVE); PHENCYCLIDINE SCREEN,URINE NEGATIVE (NEGATIVE); PROTEIN,URINE DIPSTICK NEGATIVE (NEGATIVE); URINE UROBILINOGEN 0.2 mg/dL (0.2 - 1)
[2022-05-25 02:13] LABS: AMORPHOUS SEDIMENT,URINE FEW (FEW); BACTERIA,URINE FEW /HPF; EPITHELIAL CELLS,URINE FEW /LPF; WBC,URINE (MAN) 0-5 /HPF (0-5)
[2022-05-25] MEDS ORDERED: Morphine 2mg Syringe 2 MG/ML SYR IV PRN (03:00)
[2022-05-25] MEDS ORDERED: ONDANSETRON HCL INJ 2MG/ML 2ML 2 MG/ML VIAL IV PRN (03:00)
[2022-05-25] MEDS ORDERED: ASPIRIN 81 MG CHEW TAB PO ONE (03:00)
[2022-05-25] MEDS ORDERED: ACETAMINOPHEN 325 MG TAB PO PRN (03:00)
[2022-05-25 03:22] LABS: CREATINE KINASE MB 4.6 ng/mL (0-5.0)
[2022-05-25] MEDS ORDERED: DONNATAL/LIDOCAINE/MAALOX 30 ML SUSP PO ONE (04:00)
[2022-05-25] MEDS ORDERED: MAGNESIUM/ALUMINUM/SIMETHICONE 30 ML UDC PO ONE (04:15)
[2022-05-25] MEDS ORDERED: BELLADONNA ALK/PHENOBARBITAL 5 ML UDC PO ONE (04:15)
[2022-05-25] MEDS ORDERED: LIDOCAINE VISC 2% SOLN 15 ML UDC PO ONE (04:15)
[2022-05-25] MEDS ORDERED: POTASSIUM CHLO20 ME1 PO (05:01)
[2022-05-25] MEDS ORDERED: PLAVIX75 MG PO (05:02)
[2022-05-25] MEDS ORDERED: LIPITOR20 MG PO (05:02)
[2022-05-25] MEDS ORDERED: SPIRONOLACTONE25 MG PO (05:02)
[2022-05-25 05:08] VITALS: BP 134/80
[2022-05-25] MEDS ORDERED: LASIX40 MG PO (05:09)
[2022-05-25] MEDS ORDERED: SODIUM CHLORIDE FLUSH 10 ML SYR IV PRN (06:00)
[2022-05-25 08:00] VITALS: BP 118/80
[2022-05-25 08:10] VITALS: BP 118/80
[2022-05-25] MEDS: RIVAROXABAN 10 MG TABLET PO SCH (10:07)
[2022-05-25] MEDS: TAMSULOSIN HCL 0.4 MG CAP PO SCH (10:07)
[2022-05-25 10:31] LABS: CREATINE KINASE MB 2.9 ng/mL (0-5.0)
[2022-05-25 11:36] VITALS: BP 111/81
[2022-05-25 14:55] VITALS: BP 136/77
[2022-05-25] MEDS ORDERED: Morphine 4mg INJECTION 4 MG/ML INJ IV PRN (19:15)
[2022-05-25 20:10] VITALS: BP 126/96
[2022-05-25] MEDS ORDERED: SODIUM CHLORIDE 0.9% 250ML 250 ML ONE (22:35)
[2022-05-26] VITALS (7 sets, daily range): BP systolic 99–137; BP diastolic 69–92
[2022-05-26 05:24] LABS: BASOPHILS # (AUTO) 0.1 (0.0-0.1); BASOPHILS % 0.7 % (0.0-1.0); EOSINOPHILS # (AUTO) 0.2 (0.0-0.4); EOSINOPHILS % 2.7 % (0.0-6.0); HEMATOCRIT 42.6 % (38.2-49.6); HEMOGLOBIN 13.8 g/dL (14.0-18.0); LYMPHOCYTES # (AUTO) 0.8 (1.0-3.2); LYMPHOCYTES % 10.4 % (18.0-39.1); MEAN CORPUSCULAR HEMOGLOBIN 29.6 pg (28-32); MEAN CORPUSCULAR HGB CONC 32.4 g/dL (31-35); MEAN CORPUSCULAR VOLUME 91.4 fL (81-99); MONOCYTES # (AUTO) 0.5 (0.2-0.8); MONOCYTES % 6.9 % (4.4-11.3); NEUTROPHILS % 78.4 % (38.7-80.0); PLATELET COUNT 231 x10e3/uL (140-360); RED BLOOD COUNT 4.66 x10e6/uL (4.3-5.7); RED CELL DISTRIBUTION WIDTH 12.8 % (11.7-14.4)
[2022-05-26 05:59] LABS: ALBUMIN/GLOBULIN RATIO 0.8 (0.8-2.0); ANION GAP 11.6 mmol/L (8-16); CALCIUM 8.4 mg/dL (8.4-10.2); CREATININE, SERUM 0.75 mg/dL (0.72-1.25); POTASSIUM 3.6 mmol/L (3.5-5.1)
[2022-05-26] MEDS: TAMSULOSIN HCL 0.4 MG CAP PO SCH (08:57)
[2022-05-26] MEDS: RIVAROXABAN 10 MG TABLET PO SCH (08:57)
[2022-05-26] MEDS: CLOPIDOGREL BISULFATE 75 MG TAB PO SCH (13:11)
[2022-05-26] MEDS: SPIRONOLACTONE 25 MG TAB PO SCH (13:11)
[2022-05-26] MEDS: FUROSEMIDE 40 MG TAB PO SCH (17:06)
[2022-05-26] MEDS: ATORVASTATIN 20 MG TAB PO SCH (20:42)
[2022-05-26] MEDS ORDERED: HYDROCODONE/APAP 10MG-325MG TAB PO PRN (21:15)
[2022-05-27] VITALS (8 sets, daily range): BP systolic 121–133; BP diastolic 68–86
[2022-05-27] MEDS: TAMSULOSIN HCL 0.4 MG CAP PO SCH (09:40)
[2022-05-27] MEDS: CLOPIDOGREL BISULFATE 75 MG TAB PO SCH (09:40)
[2022-05-27] MEDS: SPIRONOLACTONE 25 MG TAB PO SCH (09:40)
[2022-05-27] MEDS: FUROSEMIDE 40 MG TAB PO SCH ×2 (09:41→17:02)
[2022-05-27] MEDS: POTASSIUM CHLORIDE 20 MEQ TAB CR PO SCH (09:41)
[2022-05-27] MEDS ORDERED: VERAPAMIL HCL 2.5 MG/ML 2 ML VIAL ONE (13:49)
[2022-05-27] MEDS ORDERED: FENTANYL CITRATE/PF 100MCG/2 ML INJ ONE (13:50)
[2022-05-27] MEDS ORDERED: MIDAZOLAM HCL 2 MG/2 ML VIAL ONE (13:50)
[2022-05-27] MEDS ORDERED: LIDOCAINE HCL 1% LOCAL INJ 20 ML VIAL ONE (13:51)
[2022-05-27] MEDS ORDERED: IOPAMIDOL 370 MG/ML 100 ML INFUS..BTL INJ ONE (13:51)
[2022-05-27] MEDS ORDERED: SODIUM CHLORIDE 0.9% 1000ML 1,000 ML ONE (13:51)
[2022-05-27] MEDS ORDERED: HEPARIN SOD/SOD CHLORIDE 2,000 ML ONE (13:51)
[2022-05-27] MEDS: ATORVASTATIN 20 MG TAB PO SCH (21:13)
[2022-05-28] VITALS: BP 125/80
[2022-05-28 04:00] VITALS: BP 109/98
[2022-05-28 08:08] VITALS: BP 132/96
[2022-05-28] MEDS: SPIRONOLACTONE 25 MG TAB PO SCH (09:59)
[2022-05-28] MEDS: TAMSULOSIN HCL 0.4 MG CAP PO SCH (09:59)
[2022-05-28] MEDS: CLOPIDOGREL BISULFATE 75 MG TAB PO SCH (10:00)
[2022-05-28] MEDS: FUROSEMIDE 40 MG TAB PO SCH (10:00)
[2022-05-28] MEDS: POTASSIUM CHLORIDE 20 MEQ TAB CR PO SCH (10:00)
[2022-05-28 10:16] VITALS: BP 132/96
[2022-05-28 11:41] VITALS: BP 130/92
[2022-05-28] MEDS ORDERED: DULCOLAX STOOL100 MG PO (15:12)
[2022-05-28] MEDS ORDERED: ONDANSETRON HCL 4 MG ORAL DISINTEGRATING TAB PO PRN (15:15)
[2022-05-28] MEDS ORDERED: ATORVASTATIN 40 MG TAB PO SCH (21:00)
[2022-05-29] MEDS ORDERED: PANTOPRAZOLE SOD 40 MG TABEC PO SCH (07:30)
== END 2022-05-28 16:39 | disposition home or self-care (01) | DRG 287 ==
LOC: ER 01:19 → ERHOLD 02:59 → MED/SURG 03:33 → OBSVTOIN 05-26 07:35 → MED/SURG2 05-26 10:56
PROVIDERS: ADMIT Internal Medicine; ATTEND Internal Medicine
PROC: 4A023N7 Measurement of Cardiac Sampling and Pressure, Left Heart, Percutaneous Approach (ICD-10-PCS; principal; 2022-05-27)
PROC: B2111ZZ Fluoroscopy of Multiple Coronary Arteries using Low Osmolar Contrast (ICD-10-PCS; 2022-05-27)
DX: I25.110 Atherosclerotic heart disease of native coronary artery with unstable angina pectoris (principal); I69.354 Hemiplegia and hemiparesis following cerebral infarction affecting left non-dominant side; I13.0 Hypertensive heart and chronic kidney disease with heart failure and stage 1 through stage 4 chronic kidney disease, or unspecified chronic kidney disease; G61.0 Guillain-Barre syndrome; I50.22 Chronic systolic (congestive) heart failure; Z95.5 Presence of coronary angioplasty implant and graft; N40.0 Benign prostatic hyperplasia without lower urinary tract symptoms; E78.5 Hyperlipidemia, unspecified; Z96.0 Presence of urogenital implants; Z86.79 Personal history of other diseases of the circulatory system; Z74.09 Other reduced mobility; Z20.822 Contact with and (suspected) exposure to COVID-19; K21.9 Gastro-esophageal reflux disease without esophagitis; N18.30 Chronic kidney disease, stage 3 unspecified; E78.00 Pure hypercholesterolemia, unspecified; E66.9 Obesity, unspecified; Z85.89 Personal history of malignant neoplasm of other organs and systems; Z85.51 Personal history of malignant neoplasm of bladder; Z86.74 Personal history of sudden cardiac arrest
CPT/HCPCS: 0223U; 36415; 70450; 71045; 76937; 80053; 80307; 81001; 82550; 82553; 83690; 83880; 84484; 85025; 85610; 85730; 90471; 93005; 93306; 93454; 94799; 99152; 99153; 99284; C1760; C1769; C1887; G0378; J2001; J2250; J2270; J2405; J3010; J7030; J7050; Q9967

== ENCOUNTER 2022-08-13 14:09 | Inpatient (IN) | payer BC ==
[~2022-08-13] VITALS: Ht 322.6 cm; Wt 98.4 kg
[~2022-08-13 14:09] MED LIST changes: +DULCOLAX STOOL100 MG PO; +LASIX40 MG PO; +LIPITOR20 MG PO; +PLAVIX75 MG PO; +POTASSIUM CHLO20 ME1 PO; +SPIRONOLACTONE25 MG PO
[2022-08-13] MEDS ORDERED: ACETAMINOPHEN 325 MG TAB PO ONE (15:00)
[2022-08-13] MEDS ORDERED: SODIUM CHLORIDE 0.9% 1000ML 1,000 ML IV ONE (15:00)
[2022-08-13 15:11] LABS: BASOPHILS % 0.2 % (0.0-1.0); EOSINOPHILS # (AUTO) 0.1 (0.0-0.4); EOSINOPHILS % 1.2 % (0.0-6.0); HEMATOCRIT 44.1 % (38.2-49.6); HEMOGLOBIN 14.2 g/dL (14.0-18.0); LYMPHOCYTES # (AUTO) 0.4 (1.0-3.2); LYMPHOCYTES % 4.5 % (18.0-39.1); MEAN CORPUSCULAR HEMOGLOBIN 30.1 pg (28-32); MEAN CORPUSCULAR HGB CONC 32.2 g/dL (31-35); MEAN CORPUSCULAR VOLUME 93.6 fL (81-99); MONOCYTES # (AUTO) 0.5 (0.2-0.8); MONOCYTES % 4.8 % (4.4-11.3); NEUTROPHILS # (AUTO) 8.4 (2.1-6.9); NEUTROPHILS % 88.1 % (38.7-80.0); PLATELET COUNT 265 x10e3/uL (140-360); RED BLOOD COUNT 4.71 x10e6/uL (4.3-5.7); RED CELL DISTRIBUTION WIDTH 17.5 % (11.7-14.4)
[2022-08-13 15:21] LABS: INR 1.23; PROTHROMBIN TIME 16.6 seconds (11.9-14.5)
[2022-08-13 15:22] LABS: PARTIAL THROMBOPLASTIN TIME 34.3 seconds (23.8-35.5)
[2022-08-13 15:28] LABS: ALBUMIN 3.7 g/dL (3.5-5.0); ANION GAP 14.1 mmol/L (8-16); CALCIUM 9.2 mg/dL (8.4-10.2); CREATININE, SERUM 1.13 mg/dL (0.72-1.25); POTASSIUM 4.1 mmol/L (3.5-5.1)
[2022-08-13] MEDS ORDERED: SODIUM CHLORIDE 0.9% 1000ML 2,000 ML IV ONE (16:15)
[2022-08-13 16:26] LABS: CLARITY,URINE SL CLOUDY (CLEAR); COLOR,URINE YELLOW (YELLOW); KETONES,URINE NEGATIVE (NEGATIVE); LEUKOCYTE ESTERASE ,URINE NEGATIVE (NEGATIVE); NITRITE,URINE NEGATIVE (NEGATIVE); PROTEIN,URINE DIPSTICK NEGATIVE (NEGATIVE); URINE UROBILINOGEN 0.2 mg/dL (0.2 - 1)
[2022-08-13] MEDS ORDERED: SODIUM CHLORIDE FLUSH 10 ML SYR INJ PRN (16:30)
[2022-08-13] MEDS ORDERED: ONDANSETRON HCL INJ 2MG/ML 2ML 2 MG/ML VIAL IV PRN (16:30)
[2022-08-13 16:35] LABS: BACTERIA,URINE MODERATE /HPF
[2022-08-13] MEDS ORDERED: XARELTO20 MG PO (19:58)
[2022-08-13] MEDS ORDERED: LIPITOR20 MG PO (19:58)
[2022-08-13] MEDS ORDERED: POTASSIUM CHLO10 ME1 PO (19:58)
[2022-08-13] MEDS ORDERED: ENTRESTO 24 MG1 EACH (19:58)
[2022-08-13] MEDS ORDERED: FUROSEMIDE40 MG PO (19:58)
[2022-08-13] MEDS ORDERED: FLOMAX0.4 MG PO (19:58)
[2022-08-13] MEDS ORDERED: MINOCYCLINE HCL50 MG PO (19:58)
[2022-08-13] MEDS ORDERED: SPIRONOLACTONE25 MG PO (19:58)
[2022-08-13] MEDS ORDERED: ASPIRIN81 MG PO (19:58)
[2022-08-13 20:00] VITALS: BP 107/64
[2022-08-13 21:30] VITALS: BP 107/64
[2022-08-14] VITALS (7 sets, daily range): BP systolic 90–117; BP diastolic 53–81
[2022-08-14 05:38] LABS: BASOPHILS % 0.3 % (0.0-1.0); EOSINOPHILS # (AUTO) 0.1 (0.0-0.4); EOSINOPHILS % 1.1 % (0.0-6.0); HEMATOCRIT 36.1 % (38.2-49.6); HEMOGLOBIN 11.7 g/dL (14.0-18.0); LYMPHOCYTES # (AUTO) 0.4 (1.0-3.2); LYMPHOCYTES % 4.9 % (18.0-39.1); MEAN CORPUSCULAR HEMOGLOBIN 29.8 pg (28-32); MEAN CORPUSCULAR HGB CONC 32.4 g/dL (31-35); MEAN CORPUSCULAR VOLUME 91.9 fL (81-99); MONOCYTES # (AUTO) 0.4 (0.2-0.8); MONOCYTES % 5.9 % (4.4-11.3); NEUTROPHILS # (AUTO) 6.3 (2.1-6.9); NEUTROPHILS % 86.4 % (38.7-80.0); PLATELET COUNT 214 x10e3/uL (140-360); RED BLOOD COUNT 3.93 x10e6/uL (4.3-5.7); RED CELL DISTRIBUTION WIDTH 17.6 % (11.7-14.4)
[2022-08-14 05:46] LABS: ALBUMIN 2.7 g/dL (3.5-5.0); ALBUMIN/GLOBULIN RATIO 0.9 (0.8-2.0); ANION GAP 12.3 mmol/L (8-16); CALCIUM 8.4 mg/dL (8.4-10.2); CREATININE, SERUM 1.02 mg/dL (0.72-1.25); POTASSIUM 4.3 mmol/L (3.5-5.1)
[2022-08-14] MEDS: CLOPIDOGREL BISULFATE 75 MG TAB PO SCH (09:00)
[2022-08-14] MEDS: RIVAROXABAN 10 MG TABLET PO SCH (10:07)
[2022-08-14] MEDS: TAMSULOSIN HCL 0.4 MG CAP PO SCH (10:07)
[2022-08-14] MEDS: ASPIRIN 81 MG CHEW TAB PO SCH (10:08)
[2022-08-14] MEDS: ATORVASTATIN 20 MG TAB PO SCH (21:27)
[2022-08-15] VITALS (7 sets, daily range): BP systolic 101–128; BP diastolic 58–83
[2022-08-15] MEDS: CLOPIDOGREL BISULFATE 75 MG TAB PO SCH (09:00)
[2022-08-15] MEDS: ASPIRIN 81 MG CHEW TAB PO SCH (10:14)
[2022-08-15] MEDS: TAMSULOSIN HCL 0.4 MG CAP PO SCH (10:14)
[2022-08-15] MEDS: RIVAROXABAN 10 MG TABLET PO SCH (10:15)
[2022-08-15] MEDS ORDERED: ONDANSETRON HCL 4 MG ORAL DISINTEGRATING TAB PO PRN (14:00)
[2022-08-15] MEDS: ATORVASTATIN 20 MG TAB PO SCH (21:21)
[2022-08-16] VITALS: BP_SYST 114; BP_SYST 116; BP_DIAS 75; BP_DIAS 96
[2022-08-16 08:30] VITALS: BP 133/83
[2022-08-16 08:37] VITALS: BP 133/83
[2022-08-16] MEDS: CLOPIDOGREL BISULFATE 75 MG TAB PO SCH (09:00)
[2022-08-16] MEDS: RIVAROXABAN 10 MG TABLET PO SCH (09:25)
[2022-08-16] MEDS: ASPIRIN 81 MG CHEW TAB PO SCH (09:25)
[2022-08-16] MEDS: TAMSULOSIN HCL 0.4 MG CAP PO SCH (09:26)
[2022-08-16 12:31] VITALS: BP 117/82
== END 2022-08-16 13:34 | disposition home or self-care (01) | DRG 315 ==
LOC: ER 14:22 → ERHOLD 14:52 → MED/SURG3 19:27
PROVIDERS: ADMIT Internal Medicine; ATTEND Internal Medicine
DX: I95.9 Hypotension, unspecified (principal); I50.22 Chronic systolic (congestive) heart failure; I69.354 Hemiplegia and hemiparesis following cerebral infarction affecting left non-dominant side; R00.1 Bradycardia, unspecified; E78.5 Hyperlipidemia, unspecified; I25.10 Atherosclerotic heart disease of native coronary artery without angina pectoris; Z95.5 Presence of coronary angioplasty implant and graft; Z96.0 Presence of urogenital implants; Z20.822 Contact with and (suspected) exposure to COVID-19; E78.00 Pure hypercholesterolemia, unspecified; N40.0 Benign prostatic hyperplasia without lower urinary tract symptoms; D64.9 Anemia, unspecified
CPT/HCPCS: 36415; 70450; 71045; 80053; 81001; 83605; 85025; 85610; 85730; 87040; 87086; 87400; 93005; 99284; J0696; J7030

== ENCOUNTER 2023-08-29 11:13 | Observation (INO) | payer BC ==
[~2023-08-29] VITALS: Ht 170.2 cm; Wt 98.4 kg
[~2023-08-29 11:13] MED LIST changes: +ASPIRIN81 MG PO; +ENTRESTO 24 MG1 EACH; +FUROSEMIDE40 MG PO; +MINOCYCLINE HCL50 MG PO; +POTASSIUM CHLO10 ME1 PO; +XARELTO20 MG PO
[2023-08-29] MEDS ORDERED: SODIUM CHLORIDE 0.9% 500ML 500 ML IV ONE (12:00)
[2023-08-29 12:33] LABS: BASOPHILS # (AUTO) 0.1 (0.0-0.1); BASOPHILS % 0.5 % (0.0-1.0); EOSINOPHILS # (AUTO) 0.1 (0.0-0.4); EOSINOPHILS % 1.4 % (0.0-6.0); HEMATOCRIT 30.9 % (38.2-49.6); HEMOGLOBIN 9.9 g/dL (14.0-18.0); LYMPHOCYTES # (AUTO) 0.9 (1.0-3.2); LYMPHOCYTES % 9.5 % (18.0-39.1); MEAN CORPUSCULAR HEMOGLOBIN 29.6 pg (28-32); MEAN CORPUSCULAR VOLUME 92.2 fL (81-99); MONOCYTES # (AUTO) 0.8 (0.2-0.8); MONOCYTES % 7.8 % (4.4-11.3); NEUTROPHILS # (AUTO) 7.8 (2.1-6.9); NEUTROPHILS % 80.3 % (38.7-80.0); PLATELET COUNT 241 x10e3/uL (140-360); RED BLOOD COUNT 3.35 x10e6/uL (4.3-5.7); RED CELL DISTRIBUTION WIDTH 14.6 % (11.7-14.4); WHITE BLOOD COUNT 9.72 x10e3/uL (4.8-10.8)
[2023-08-29 12:43] LABS: INR 1.44; PARTIAL THROMBOPLASTIN TIME 33.2 seconds (23.8-35.5); PROTHROMBIN TIME 18.4 seconds (11.9-14.5)
[2023-08-29 12:53] LABS: ALBUMIN 4.3 g/dL (3.5-5.0); ALBUMIN/GLOBULIN RATIO 1.2 (0.8-2.0); ANION GAP 15.1 mmol/L (8-16); CALCIUM 9.1 mg/dL (8.4-10.2); CREATININE, SERUM 2.48 mg/dL (0.72-1.25); MAGNESIUM 2.1 MG/DL (1.3-2.1); POTASSIUM 5.1 mmol/L (3.5-5.1)
[2023-08-29] MEDS ORDERED: ONDANSETRON HCL INJ 2MG/ML 2ML 2 MG/ML VIAL IV PRN (13:30)
[2023-08-29] MEDS ORDERED: FAMOTIDINE 20 MG/2 ML VIAL IV SCH (13:30)
[2023-08-29 14:00] VITALS: BP 114/67; PULSE 50; RESP 18; TEMP 98.1; O2SAT 98
[2023-08-29 14:20] VITALS: BP 114/67; PULSE 50; RESP 18; TEMP 98.1; O2SAT 98
[2023-08-29] MEDS ORDERED: NEURONTIN300 MG PO (14:53)
[2023-08-29] MEDS ORDERED: POTASSIUM99 M2 PO (14:53)
[2023-08-29 16:14] VITALS: BP 116/51; PULSE 51; RESP 20; TEMP 97.9; O2SAT 99
[2023-08-29 16:43] LABS: CLARITY,URINE SL CLOUDY (CLEAR); COLOR,URINE YELLOW (YELLOW); KETONES,URINE NEGATIVE (NEGATIVE); LEUKOCYTE ESTERASE ,URINE NEGATIVE (NEGATIVE); NITRITE,URINE NEGATIVE (NEGATIVE); PROTEIN,URINE DIPSTICK TRACE (NEGATIVE); URINE UROBILINOGEN 0.2 mg/dL (0.2 - 1)
[2023-08-29 17:03] LABS: BACTERIA,URINE FEW /HPF; YEAST,URINE RARE
[2023-08-29] MEDS: FAMOTIDINE 20 MG/2 ML VIAL IV SCH (18:16)
[2023-08-29 20:00] VITALS: BP 123/70; PULSE 55; RESP 16; TEMP 98; O2SAT 100; O2SAT 99
[2023-08-30] VITALS: BP 115/68; PULSE 56; RESP 16; TEMP 98.7; O2SAT 100
[2023-08-30 04:00] VITALS: BP 122/69; PULSE 100; TEMP 98.1; O2SAT 100
[2023-08-30 06:10] LABS: BASOPHILS % 0.6 % (0.0-1.0); EOSINOPHILS # (AUTO) 0.2 (0.0-0.4); EOSINOPHILS % 2.9 % (0.0-6.0); HEMATOCRIT 26.7 % (38.2-49.6); HEMOGLOBIN 8.7 g/dL (14.0-18.0); LYMPHOCYTES # (AUTO) 1.2 (1.0-3.2); LYMPHOCYTES % 16.5 % (18.0-39.1); MEAN CORPUSCULAR HEMOGLOBIN 29.6 pg (28-32); MEAN CORPUSCULAR HGB CONC 32.6 g/dL (31-35); MEAN CORPUSCULAR VOLUME 90.8 fL (81-99); MONOCYTES # (AUTO) 0.6 (0.2-0.8); MONOCYTES % 9.2 % (4.4-11.3); NEUTROPHILS # (AUTO) 4.9 (2.1-6.9); NEUTROPHILS % 70.4 % (38.7-80.0); PLATELET COUNT 205 x10e3/uL (140-360); RED BLOOD COUNT 2.94 x10e6/uL (4.3-5.7); RED CELL DISTRIBUTION WIDTH 14.6 % (11.7-14.4); WHITE BLOOD COUNT 6.99 x10e3/uL (4.8-10.8)
[2023-08-30 06:42] LABS: ALBUMIN 3.5 g/dL (3.5-5.0); ALBUMIN/GLOBULIN RATIO 1.2 (0.8-2.0); ANION GAP 10.6 mmol/L (8-16); CALCIUM 8.9 mg/dL (8.4-10.2); CHOL/HDL RATIO 3.1 (3.9-4.7); CREATININE, SERUM 2.06 mg/dL (0.72-1.25); POTASSIUM 5.6 mmol/L (3.5-5.1)
[2023-08-30] MEDS ORDERED: GABAPENTIN 300 MG CAP PO PRN (08:45)
[2023-08-30] MEDS ORDERED: TAMSULOSIN HCL 0.4 MG CAP PO SCH (09:00)
[2023-08-30] MEDS ORDERED: ASPIRIN 81 MG CHEW TAB PO SCH (09:00)
[2023-08-30] MEDS ORDERED: RIVAROXABAN 20 MG TABLET PO SCH (09:00)
[2023-08-30] MEDS: FAMOTIDINE 20 MG/2 ML VIAL IV SCH (09:00)
[2023-08-30 09:10] VITALS: BP 118/73; PULSE 65; RESP 18; TEMP 98.4; O2SAT 100
[2023-08-30 09:17] LABS: % IRON SATURATION 24 % (15-50); IRON 71 ug/dL (65-175); TOTAL IRON BINDING CAPACITY 301 ug/dL (261-478); TRANSFERRIN 215 mg/dL (174-364)
[2023-08-30 09:20] VITALS: BP 118/73; PULSE 65; RESP 18; TEMP 98.4; O2SAT 100
[2023-08-30] MEDS ORDERED: SACUBITRIL/VALSARTAN 24MG/26MG 1 EA TAB PO SCH (10:00)
[2023-08-30 12:54] VITALS: BP 122/67; PULSE 61; RESP 20; TEMP 98.3; O2SAT 100
[2023-08-30] MEDS ORDERED: ATORVASTATIN 40 MG TAB PO SCH (21:00)
[2023-08-31] MEDS ORDERED: FAMOTIDINE 20 MG TAB PO SCH (07:30)
== END 2023-08-30 13:35 | disposition home or self-care (01) ==
LOC: ER 11:21 → ERHOLD 13:21 → MED/SURG2 13:55
PROVIDERS: ADMIT Internal Medicine; ATTEND Internal Medicine
DX: R55 Syncope and collapse (principal); E86.0 Dehydration; N17.9 Acute kidney failure, unspecified; E87.5 Hyperkalemia; R00.1 Bradycardia, unspecified; I95.9 Hypotension, unspecified; I50.20 Unspecified systolic (congestive) heart failure; I69.354 Hemiplegia and hemiparesis following cerebral infarction affecting left non-dominant side; I48.91 Unspecified atrial fibrillation; N40.0 Benign prostatic hyperplasia without lower urinary tract symptoms; Z11.52 Encounter for screening for COVID-19; Z79.02 Long term (current) use of antithrombotics/antiplatelets; Z79.82 Long term (current) use of aspirin; Z79.899 Other long term (current) drug therapy; Z95.5 Presence of coronary angioplasty implant and graft
CPT/HCPCS: 36415 ×2; 70450; 71045; 80053 ×2; 80061; 81001; 82550 ×2; 83540; 83735; 83880; 84466; 84484 ×2; 85025 ×2; 85610; 85730; 93005; 99284; G0378 ×2; J7040; U0002

== ENCOUNTER → 2024-10-13 | Outpatient (REF) | payer MEDICARE ==
[~2024-10-13] MED LIST changes: -ENTRESTO 24 MG1 EACH; +ENTRESTO 24 MG1 EACH PO; +NEURONTIN300 MG PO; +POTASSIUM99 M2 PO
== END ==
LOC: MRI 08:35
PROVIDERS: ATTEND Psychiatry & Neurology Clinical Neurophysiology
DX: I60.6 Nontraumatic subarachnoid hemorrhage from other intracranial arteries (principal); I69.054 Hemiplegia and hemiparesis following nontraumatic subarachnoid hemorrhage affecting left non-dominant side; R26.89 Other abnormalities of gait and mobility
CPT/HCPCS: 70544; 70551

== ENCOUNTER 2025-06-01 20:34 | Observation (INO) | payer BC, MEDICARE ==
[~2025-06-01] VITALS: Ht 170.2 cm; Wt 86.2 kg
[2025-06-01 20:34] VITALS: TEMP 99.1
[2025-06-01 21:01] LABS: BASOPHILS % 0.6 % (0.0-1.0); EOSINOPHILS % 5.0 % (0.0-6.0); LYMPHOCYTES % 10.3 % (18.0-39.1); MONOCYTES % 7.0 % (4.4-11.3); NEUTROPHILS % 76.6 % (38.7-80.0); RED CELL DISTRIBUTION WIDTH 13.4 % (11.7-14.4)
[2025-06-01 21:17] LABS: EST GLOMERULAR FILTRATION RATE 37.0 ML/MIN (>=60)
[2025-06-01] MEDS ORDERED: ONDANSETRON HCL INJ 2MG/ML 2ML 2 MG/ML VIAL IV PRN (22:15)
[2025-06-01] MEDS ORDERED: Morphine 4mg INJECTION 4 MG/ML INJ IV PRN (22:15)
[2025-06-01 22:34] VITALS: PULSE 91; RESP 22
[2025-06-01] MEDS ORDERED: MYCOPHENOLATE250 MG PO (23:04)
[2025-06-01 23:12] VITALS: BP 130/85; PULSE 89; RESP 18; TEMP 98.1; O2SAT 99
[2025-06-01] MEDS ORDERED: EZETIMIBE10 MG PO (23:12)
[2025-06-01 23:16] VITALS: BP 130/85; PULSE 92; RESP 18; TEMP 99.1; O2SAT 99
[2025-06-02 03:05] VITALS: BP 130/84; PULSE 85; RESP 18; TEMP 99; O2SAT 97
[2025-06-02] MEDS: METHYLPREDNISOLONE SOD SUCC 40 MG/ML VIAL 1ML IV ONE (05:29)
[2025-06-02 06:38] LABS: BASOPHILS % 0.6 % (0.0-1.0); EOSINOPHILS % 7.3 % (0.0-6.0); LYMPHOCYTES % 16.6 % (18.0-39.1); MONOCYTES % 11.8 % (4.4-11.3); NEUTROPHILS % 63.4 % (38.7-80.0); RED CELL DISTRIBUTION WIDTH 13.1 % (11.7-14.4)
[2025-06-02 07:06] LABS: EST GLOMERULAR FILTRATION RATE 48.0 ML/MIN (>=60)
[2025-06-02] MEDS: ASPIRIN 81 MG CHEW TAB PO ONE (07:47)
[2025-06-02] MEDS: MYCOPHENOLATE MOFETIL 250 MG CAP PO SCH (08:30)
[2025-06-02] MEDS: RIVAROXABAN 10 MG TABLET PO SCH (08:30)
[2025-06-02 09:00] VITALS: BP 130/84; PULSE 85; RESP 18; TEMP 99; O2SAT 97
[2025-06-02] MEDS ORDERED: MYCOPHENOLATE MOFETIL 250 MG CAP PO SCH (09:00)
[2025-06-02 13:37] VITALS: BP 125/86; PULSE 65; RESP 18; TEMP 98.7; O2SAT 95
[2025-06-02 15:00] VITALS: BP 183/116
[2025-06-02 16:49] VITALS: BP 123/67; PULSE 72; RESP 18; TEMP 98.2; O2SAT 97
[2025-06-02 17:13] VITALS: BP 151/94; PULSE 67; RESP 18; TEMP 98.2; O2SAT 97
[2025-06-02] MEDS ORDERED: ATORVASTATIN 20 MG TAB PO SCH (21:00)
[2025-06-02] MEDS ORDERED: EZETIMIBE 10 MG TAB PO SCH (21:00)
== END 2025-06-02 19:49 | disposition home or self-care (01) ==
LOC: ER 20:38 → ERHOLD 22:01 → MED/SURG3 22:51
PROVIDERS: ADMIT Internal Medicine; ATTEND Internal Medicine
DX: M94.0 Chondrocostal junction syndrome [Tietze] (principal); R07.9 Chest pain, unspecified; I13.0 Hypertensive heart and chronic kidney disease with heart failure and stage 1 through stage 4 chronic kidney disease, or unspecified chronic kidney disease; N18.4 Chronic kidney disease, stage 4 (severe); I50.22 Chronic systolic (congestive) heart failure; I25.10 Atherosclerotic heart disease of native coronary artery without angina pectoris; Z95.5 Presence of coronary angioplasty implant and graft; I48.0 Paroxysmal atrial fibrillation; Z79.01 Long term (current) use of anticoagulants; E78.5 Hyperlipidemia, unspecified; Z86.73 Personal history of transient ischemic attack (TIA), and cerebral infarction without residual deficits; D89.89 Other specified disorders involving the immune mechanism, not elsewhere classified
CPT/HCPCS: 36415 ×2; 71045; 80053 ×2; 82550 ×2; 83690; 83880; 84484 ×2; 85025 ×2; 93005; 93306; 99284; G0378 ×2; J2919; J7517